=== PATIENT | male | born 1990 | race Caucasian/White ===

== ENCOUNTER 2018-07-02 21:15 | Emergency (ER) | payer BC ==
[~2018-07-02] VITALS: Ht 172.7 cm; Wt 75.8 kg
[~2018-07-02 21:15] MED LIST: IBUPROFEN 600600 M1 PO
[2018-07-03] MEDS ORDERED: HYDROCODONE-AP1 EAC6 PO (00:15)
[2018-07-03] MEDS ORDERED: BACTRIM DS TAB1 EACH PO (00:15)
[2018-07-03] MEDS ORDERED: IBUPROFEN 600600 M1 PO (00:15)
[2018-07-03 00:34] VITALS: BP 137/87
== END 2018-07-03 00:35 | disposition home or self-care (01) ==
LOC: ER 21:15
DX: L02.415 Cutaneous abscess of right lower limb (principal); F17.210 Nicotine dependence, cigarettes, uncomplicated